=== PATIENT | male | born 1980 | race Caucasian/White ===

== ENCOUNTER 2022-04-21 20:52 | Emergency (ER) | payer MEDICAID ==
[~2022-04-21] VITALS: Ht 172.7 cm; Wt 95.0 kg
[2022-04-21 22:30] VITALS: BP 151/102
[2022-04-21] MEDS ORDERED: KETOROLAC 60MG/2ML VIAL IM ONE (22:30)
[2022-04-22] MEDS ORDERED: CEPH500C2 MT (00:42)
== END 2022-04-22 00:55 | disposition home or self-care (01) ==
LOC: ER 20:52
DX: M79.662 Pain in left lower leg (principal); M79.672 Pain in left foot
CPT/HCPCS: 73590; 73630; 96372; 99284; J1885